=== PATIENT | male | born 1945 | race Caucasian/White ===

== ENCOUNTER 2022-04-13 00:25 | Emergency (ER) | payer MEDICARE, OTHER ==
[2022-04-13] MEDS ORDERED: Ondansetron 4 MG/2 ML SDV IVPUSH ONE (01:08)
[2022-04-13] MEDS ORDERED: fentaNYL 100 MCG/2 ML SDV IVPUSH ONE (01:11)
[2022-04-13] MEDS ORDERED: Acetaminophen/HYDROcodone 325-5 MG Tab PO ONE (02:37)
[2022-04-13] MEDS ORDERED: Clindamycin HCl 150 MG Cap PO ONE (02:37)
[2022-05-11 13:28] LABS: CHLORIDE,CL 107 mmol/L (98-107); ESTIMATED GFR 67 mL/min (>=60); SODIUM,NA 141 mmol/L (136-145)
== END 2022-04-13 02:24 | disposition home or self-care (01) ==
LOC: DL.ED 00:25
DX: K12.2 Cellulitis and abscess of mouth (principal)
CPT/HCPCS: 36415; 80053; 83605; 85025; 87040; 96365; 96375; 99283; A9270; J2405; J3010; J3370; J7050